=== PATIENT | female | born 1990 | race African-American/Black ===

== ENCOUNTER 2018-05-10 10:57 | Inpatient (IN) ==
[2018-05-10] MEDS ORDERED: ONDANSETRON 4 MG/2 ML VIAL IV PRN ×2 (11:14→12:42)
[2018-05-10] MEDS ORDERED: OXYTOCIN/LR 30 UNIT/1,000 ML BAG IV ONE (11:15)
[2018-05-10] MEDS ORDERED: AMPICILLIN INJ 2,000 MG in SODIUM CHLORIDE 0.9% 100 ML IV ONE (11:15)
[2018-05-10] MEDS ORDERED: SODIUM CHLORIDE 0.9% 100 ML IV ONE (11:17)
[2018-05-10] MEDS ORDERED: AMPICILLIN 2,000 MG VIAL ONE (11:17)
[2018-05-10] MEDS ORDERED: MEPERIDINE 50 MG/1 ML VIAL ONE (11:18)
[2018-05-10] MEDS ORDERED: miSOPROStol 200 MCG TABLET ONE (11:18)
[2018-05-10] MEDS ORDERED: METHYLERGONOVINE 0.2 MG/1 ML AMP ONE (11:19)
[2018-05-10] MEDS ORDERED: CARBOPROST TROMETHAMINE 250 MCG/ML AMP IM ONE (11:19)
[2018-05-10] MEDS ORDERED: LACTATED RINGERS 1,000 ML IV SCH (11:30)
[2018-05-10] MEDS ORDERED: ePHEDrine 50 MG/ML AMP IV PRN (11:31)
[2018-05-10] MEDS ORDERED: PROMETHAZINE 25 MG/1 ML VIAL IM ONE (11:31)
[2018-05-10] MEDS ORDERED: LACTATED RINGERS 1,000 ML IV ONE (11:31)
[2018-05-10] MEDS ORDERED: diphenhydrAMINE 50 MG/1 ML VIAL IV PRN ×2 (11:31)
[2018-05-10] MEDS ORDERED: FAMOTIDINE 20 MG/2 ML VIAL IV ONE (11:31)
[2018-05-10] MEDS ORDERED: CITRIC ACID/SODIUM CITRATE 30 ML UDCUP PO ONE (11:31)
[2018-05-10] MEDS ORDERED: hydrOXYzine HCL 25 MG/1 ML VIAL IM PRN (11:31)
[2018-05-10] MEDS ORDERED: NALOXONE 0.4 MG/ML VIAL IV PRN (11:31)
[2018-05-10] MEDS ORDERED: MEPERIDINE 50 MG/1 ML VIAL IV ONE (11:40)
[2018-05-10] MEDS ORDERED: ONDANSETRON 4 MG/2 ML VIAL IV ONE (11:40)
[2018-05-10 11:47] LABS: Basophils % 0.2 % (0.0-0.8); Eosinophils # 0.1 10*3/uL (0.0-0.87); Eosinophils % 0.7 % (0.00-10.9); Hematocrit 40.3 VOL% (35.7-47.0); Immature Granulocytes % 0.9 %; Immature Granulocytes Absolute 0.13 #; Lymphocytes # 2.2 10*3/uL (1.4-4.0); Lymphocytes % 16.1 % (21.3-54.2); Mean Corpuscular HGB Conc 32.3 GM/DL (32-36); Mean Corpuscular Hemoglobin 31 PG (27-34); Mean Corpuscular Volume 97.1 FL (87-102); Mean Platelet Volume 10.3 FL (9.6-12.0); Monocytes # 0.9 10*3/uL (0.11-0.8); Monocytes % 6.2 % (1.7-12.7); Neutrophils # 10.5 10*3/uL (1.4-7.4); Neutrophils % 75.9 % (38.7-73.9); Platelet Count 282 T/CUMM (130-400); Red Blood Count 4.15 MC/CUMM (3.8-5.5); Red Cell Distribution Width 13.2 % (9.3-17.3); White Blood Count 13.9 T/CUMM (4-12)
[2018-05-10] MEDS ORDERED: fentaNYL 2 MCG/ROPIV 0.2% EPID 100 ML EPIDURAL SCH (12:00)
[2018-05-10 12:03] LABS: Alanine Aminotransferase 10 U/L (13-56); Albumin 3.2 G/DL (3.4-5.0); Alkaline Phosphatase 333 U/L (45-117); Aspartate Amino Transferase 17 U/L (0-37); Bilirubin,Total < 0.39 MG/DL (0.2-1.0); Blood Urea Nitrogen 8 MG/DL (7-18); Glucose 71 MG/DL (74-106); Osmolality,Calculated 268.8 MOS/KG (273-304); Potassium 3.7 MMOL/L (3.5-5.1); Sodium 137 MMOL/L (136-145); Total Protein 8.7 G/DL (6.4-8.3)
[2018-05-10] MEDS ORDERED: LIDOCAINE 1% 50 ML VIAL ONE (12:13)
[2018-05-10] MEDS ORDERED: MEPERIDINE 25 MG/1 ML VIAL ONE (12:14)
[2018-05-10 12:41] LABS: Cord Arterial Blood HCO3 25.1 MMOL/L
[2018-05-10 12:42] LABS: Cord Venous Blood HCO3 20.4 MMOL/L; Cord Venous Blood PCO2 46.9 MMHG
[2018-05-10] MEDS ORDERED: LANOLIN 50% CREAM 0.3 OZ TUBE TOP PRN (12:42)
[2018-05-10] MEDS ORDERED: DIPH/TET/ACEL PERT BOOSTER VACCINE 0.5 ML VIAL IM ONE (12:42)
[2018-05-10] MEDS ORDERED: WITCH HAZEL PADS 100/JAR TOP PRN (12:42)
[2018-05-10] MEDS ORDERED: RHO(D) IMMUNE GLOBULIN 300 MCG SYRINGE IM ONE (12:42)
[2018-05-10] MEDS ORDERED: ACETAMINOPHEN 325 MG TABLET PO PRN (12:42)
[2018-05-10] MEDS ORDERED: OXYTOCIN/LR 20 UNIT/1,000 ML BAG IV ONE (12:42)
[2018-05-10] MEDS ORDERED: MEASLES/MUMPS/RUBELLA VACCINE 0.5 ML VIAL SUBCUT ONE (12:42)
[2018-05-10] MEDS ORDERED: BISACODYL 10 MG SUPP RECTAL PRN (12:42)
[2018-05-10] MEDS ORDERED: HYDROCORTISONE 2.5% RECTAL CREAM 30 GM TUBE TOP PRN (12:42)
[2018-05-10] MEDS ORDERED: BENZOCAINE 20%/MENTHOL 0.5% SPRAY 56 GM CAN TOP PRN (12:42)
[2018-05-10] MEDS ORDERED: oxyCODONE/ACETAMINOPHEN 5-325 MG TABLET PO PRN ×2 (12:42)
[2018-05-10 12:45] LABS: Cord Venous Blood PO2 18.5
[2018-05-10 12:52] LABS: HIV Antigen/Antibody Result Nonreactive (Nonreactive); Hepatitis B Surface Ag Quant < 0.10 Index; Hepatitis B Surface Ag Result Negative (Negative); Rubella Antibody IgG 137.8 IU/ML
[2018-05-10 13:25] LABS: Barbiturates Screen,Urine Negative (Negative); Benzodiazepines Screen,Urine Negative (Negative); Cannabinoid Screen,Urine Negative (Negative); Opiate Screen,Urine Positive (Negative); Phencyclidine Screen,Urine Negative (Negative)
[2018-05-10] MEDS: IBUPROFEN 800 MG TABLET PO PRN (17:25)
[2018-05-10] MEDS: DOCUSATE SODIUM 100 MG CAPSULE PO SCH (21:13)
[2018-05-11] MEDS: IBUPROFEN 800 MG TABLET PO PRN ×2 (06:01→18:50)
[2018-05-11 06:10] LABS: Basophils # 0.1 10*3/uL (0.0-0.2); Basophils % 0.3 % (0.0-0.8); Eosinophils # 0.2 10*3/uL (0.0-0.87); Eosinophils % 1.2 % (0.00-10.9); Hematocrit 32.6 VOL% (35.7-47.0); Hemoglobin 10.7 GM/DL (12.0-16.0); Immature Granulocytes % 0.6 %; Lymphocytes # 4.2 10*3/uL (1.4-4.0); Lymphocytes % 24.2 % (21.3-54.2); Mean Corpuscular HGB Conc 32.8 GM/DL (32-36); Mean Corpuscular Hemoglobin 32 PG (27-34); Mean Corpuscular Volume 96.4 FL (87-102); Mean Platelet Volume 10.5 FL (9.6-12.0); Monocytes # 1.8 10*3/uL (0.11-0.8); Monocytes % 10.6 % (1.7-12.7); Neutrophils # 10.9 10*3/uL (1.4-7.4); Neutrophils % 63.1 % (38.7-73.9); Platelet Count 208 T/CUMM (130-400); Red Blood Count 3.38 MC/CUMM (3.8-5.5); Red Cell Distribution Width 13.3 % (9.3-17.3); White Blood Count 17.3 T/CUMM (4-12)
[2018-05-11] MEDS: DOCUSATE SODIUM 100 MG CAPSULE PO SCH ×2 (09:31→20:46)
[2018-05-11] MEDS ORDERED: INFLUENZA VIRUS VACCINE 0.5 ML SYRINGE IM ONE (11:30)
[2018-05-12] MEDS: IBUPROFEN 800 MG TABLET PO PRN (05:28)
[2018-05-12 08:20] VITALS: BP 128/77
[2018-05-12] MEDS: DOCUSATE SODIUM 100 MG CAPSULE PO SCH (09:01)
[2018-05-12] MEDS ORDERED: INFLUENZA VIRUS VACCINE 0.5 ML SYRINGE IM ONE (10:34)
== END 2018-05-12 13:05 | disposition home or self-care (01) | DRG 805 ==
LOC: N.LDOUT 10:57 → N.LD 11:04 → N.OB 19:28
PROVIDERS: ADMIT Obstetrics & Gynecology; ATTEND Obstetrics & Gynecology